=== PATIENT | male | born 1995 | race Caucasian/White ===

== ENCOUNTER → 2020-07-21 15:17 | Outpatient (BNVA) | payer MEDICARE, MEDICAID, SELFPAY | PROVIDERS: Family Provider Family Medicine; Visit Provider Nurse Practitioner | DX: S50.319A Abrasion of unspecified elbow, initial encounter (principal); L08.9 Local infection of the skin and subcutaneous tissue, unspecified; S89.90XA Unspecified injury of unspecified lower leg, initial encounter; M25.569 Pain in unspecified knee; X58.XXXA Exposure to other specified factors, initial encounter | CPT/HCPCS: 73562 ==

== ENCOUNTER 2020-09-15 21:18 | Emergency (ER) | payer MEDICARE, MEDICAID, SELFPAY ==
--- NOTE | 2020-09-15 21:41 | CTR_ITS ---
PROCEDURE INFORMATION: Exam: CT Maxillofacial Without Contrast Exam date and time: 09/15/2020 9:41 PM Age: 25 years old Clinical indication: Injury or trauma; Blunt trauma (contusions or hematomas); Orbit/periorbital; Left; Patient HX: Kicked by a horse, +loc w L periorbital bruising; Additional info: Left eye hematoma. Fell off horse TECHNIQUE: Imaging protocol: Computed tomography images of the face without contrast. Radiation optimization: All CT scans at this facility use at least one of these dose optimization techniques: automated exposure control; mA and/or kV adjustment per patient size (includes targeted exams where dose is matched to clinical indication); or iterative reconstruction. COMPARISON: No relevant prior studies available. RADIATION DOSE METRICS: Total DLP (mGy-cm): 764.56 FINDINGS: Orbital cavity: Negative for orbital injury. Bones/joints: No acute fracture. Paranasal sinuses: Normal. No air-fluid levels. Soft tissues: Mild periorbital soft tissue swelling. CT/CT facial bones wo con* [id number] IMPRESSION: Negative for facial bone fracture. Radiation Dose CTDIVOL = (mGy): DLP = 764.56 (mGy-cm)
--- NOTE | 2020-09-15 21:41 | CTR_ITS ---
PROCEDURE INFORMATION: Exam: CT Head Without Contrast Exam date and time: 09/15/2020 9:41 PM Age: 25 years old Clinical indication: Injury or trauma; Blunt trauma (contusions or hematomas); With loss of consciousness; Loss of consciousness for 30 minutes or less; Patient HX: Kicked by a horse, +loc w L periorbital bruising; Additional info: Fell off horse TECHNIQUE: Imaging protocol: Computed tomography of the head without contrast. Radiation optimization: All CT scans at this facility use at least one of these dose optimization techniques: automated exposure control; mA and/or kV adjustment per patient size (includes targeted exams where dose is matched to clinical indication); or iterative reconstruction. COMPARISON: No relevant prior studies available. RADIATION DOSE METRICS: Total DLP (mGy-cm): 849.51 FINDINGS: Brain: Normal. No hemorrhage. Unremarkable white matter. No mass effect. Cerebral ventricles: No ventriculomegaly. Paranasal sinuses: Visualized sinuses are unremarkable. No fluid levels. Mastoid air cells: Visualized mastoid air cells are well aerated. Orbital cavity: No orbital injury identified. Bones/joints: Unremarkable. No acute fracture. Soft tissues: Left periorbital soft tissue swelling. CT/CT head wo con* [id number] IMPRESSION: Negative for intracranial injury. Radiation Dose CTDIVOL = (mGy): DLP = 849.51 (mGy-cm)
--- NOTE | 2020-09-15 21:41 | CTR_ITS ---
PROCEDURE INFORMATION: Exam: CT Cervical Spine Without Contrast Exam date and time: 09/15/2020 9:41 PM Age: 25 years old Clinical indication: Injury or trauma; Blunt trauma; Patient HX: Kicked by a horse, +loc w L periorbital bruising c-collar in place; Additional info: Fell off horse, neck pain TECHNIQUE: Imaging protocol: Computed tomography images of the cervical spine without contrast. Radiation optimization: All CT scans at this facility use at least one of these dose optimization techniques: automated exposure control; mA and/or kV adjustment per patient size (includes targeted exams where dose is matched to clinical indication); or iterative reconstruction. COMPARISON: CT head wo con* [id number] 09/15/2020 9:52 PM RADIATION DOSE METRICS: Total DLP (mGy-cm): 484.71 FINDINGS: Vertebrae: No acute fracture. Normal alignment. C2-C3: No significant disc protrusion. No severe spinal canal stenosis. No significant neural foraminal narrowing. C3-C4: No significant disc protrusion. No severe spinal canal stenosis. No significant neural foraminal narrowing. C4-C5: No significant disc protrusion. No severe spinal canal stenosis. No significant neural foraminal narrowing. C5-C6: No significant disc protrusion. No severe spinal canal stenosis. No significant neural foraminal narrowing. C6-C7: No significant disc protrusion. No severe spinal canal stenosis. No significant neural foraminal narrowing. 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 C7-T1: No significant disc protrusion. No severe spinal canal stenosis. No significant neural foraminal narrowing. Soft tissues: Unremarkable. Lungs: Lung apices are normal. CT/CT cervical spin wo con* [id number] IMPRESSION: No acute findings. Radiation Dose CTDIVOL = (mGy): DLP = 484.71 (mGy-cm)
--- NOTE | 2020-09-15 21:42 | XRR_ITS ---
PROCEDURE INFORMATION: Exam: XR Chest Exam date and time: 09/15/2020 9:42 PM Age: 25 years old Clinical indication: Injury or trauma; Fall; Blunt trauma (contusions or hematomas); Additional info: Fell off horse TECHNIQUE: Imaging protocol: XR of the chest. Views: 1 view. COMPARISON: CT cervical spin wo con* [id number] 09/15/2020 9:56 PM FINDINGS: Lungs: Unremarkable. No consolidation. Pleural spaces: Unremarkable. No pleural effusion. No pneumothorax. Heart/Mediastinum: Unremarkable. No cardiomegaly. Bones/joints: Unremarkable. XR/XR chest 1V portable [id number] IMPRESSION: No acute findings.
[2020-09-15] MEDS: morphine 4 mg/mL SDV 1 mL IVP (21:51)
[2020-09-15] MEDS: ondansetron 2 mg/ML SDV 2 mL 4 MG IVP (21:52)
[2020-09-15 21:59] LABS: Basophils % 0.3 %; Eosinophils # 0.1 10^3/uL (0.0-0.8); Eosinophils % 0.8 %; Hemoglobin 16.6 g/dL (11.7-16.6); Lymphocytes % 40.1 %; Mean Corpuscular HGB Conc 33.9 g/dL (30.0-36.0); Mean Corpuscular Hemoglobin 30.4 pg (28.0-34.0); Mean Corpuscular Volume 89.7 fL (80-94); Monocytes # 0.5 10^3/uL (0.2-0.9); Monocytes % 6.8 %; Neutrophils % 51.7 %; Nucleated Red Blood Cells % 0 %; Platelet Count 284 10^3/cmm (130-400); Red Blood Count 5.46 10^6/uL (4.1-5.3); Red Cell Distribution Width 11.5 % (12.1-15.1); White Blood Count 7.4 10^3/uL (4.0-10.0)
[2020-09-15] MEDS: sodium chloride 0.9% 1,000 ML 999 ML IV (22:03)
[2020-09-15 22:04] VITALS: BP 135/84; PULSE 76; RESP 26; TEMP 36.6; O2SAT 99; BMI 21.7
[2020-09-15 22:09] LABS: Alanine Aminotransferase 22 U/L (0-41); Albumin Level 5.2 g/dL (3.5-5.2); Alkaline Phosphatase 87 IU/L (40-130); Anion Gap 23.8 (5-19); Aspartate Amino Transferase 24 U/L (0-40); Blood Urea Nitrogen 16 mg/dL (6-20); Calcium 9.5 mg/dL (8.5-10.5); Carbon Dioxide 20 mmol/L (22-29); Chloride 97 mmol/L (98-107); Glomerular Filtration Rate 102.8 mL/min (90-130); Glucose 127 mg/dL (65-115); Osmolality Calculated 287 mOsm/kg (285-295); Potassium 3.8 mmol/L (3.5-5.1); Sodium 137 mmol/L (136-145); Total Bilirubin 0.6 mg/dL (0.15-1.2); Total Protein 7.2 g/dL (6.6-8.7)
--- NOTE | 2020-09-15 22:09 | ED_ITS ---
HPI - Head Injury General: Chief complaint: Head Injury Stated complaint: KCIKED IN THE HEAD BY A HORSE Time Seen by Provider: 09/15/20 21:31 History of Present Illness: HPI Narrative: The patient is a 25-year-old male who comes to the ER after a head injury. Report is that he fell off of a horse hitting his head at the [place]. He does not remember the event and there is secondhand information through bystanders that say he was possibly knocked out for up to 2 minutes. He was definitely confused after not knowing who he was. EMS reported that he was conscious and answering some questions inappropriately like what year is it he responded 2020. They reported that that is normal for him however I talked to him and his girlfriend and they say it is abnormal for him. He is not sure of the year, the president. He knows his full name and address. He does not recall the month. He complains of a frontal headache and has slight bruising under his left eyebrow. Denies any medical problems until today. MD Complaint: head injury Arrival Conditions: C-spine immobilization present Mechanism of Injury: unsure Loss of Consciousness: yes Severity: severe Severity scale (1-10): 10 Quality: sharp Associated symptoms: Reports amnesia, confusion and nausea; Deny neck pain, numbness, tingling, vertigo, visual changes, vomiting or weakness Review of Systems General: Reports: 10 or more systems reviewed and unremarkable except in HPI and below Const: Denies: fatigue Eyes: Denies: change in vision, blurry vision or eye redness ENMT: Denies: throat pain, swelling of lips/tongue, ear or mastoid pain or nasal congestion Card: Denies: chest pain, palpitations, irregular heart rhythm, edema, dyspnea on exertion or orthopnea Resp: Denies: dyspnea, productive cough or non-productive cough GI: Reports: nausea; Denies: vomiting : Denies: flank pain, urinary frequency or urinary urgency Musc: Denies: neck pain Skin/Breast: Denies: rash, pruritus, erythema, skin pain or skin tenderness Neuro: Reports: headache(s) and confusion; Denies: vertigo Endo: Denies: polyuria All/Imm: Denies: urticaria, throat swelling or tongue swelling PFSH ED PFSH: Social History Smoking and tobacco status: never smoked Physical Exam Const: COMMON NORMALS: alert GENERAL APPEARANCE: cooperative, in distress and anxious; not lethargic ORIENTATION/CONSCIOUSNESS: Yes awake, Yes oriented to person and Yes confused; not oriented to place, not oriented to time and not lethargic OTHER: He is unsure who the president is, what month it is, what day it is, and where he is. He knows his name and home address but cannot recall his phone number. Also not sure who the president is. He has bruising below his left eyebrow from the injury. HENMT: COMMON NORMALS: normocephalic, external ears normal and Normal external nose present HEAD & SCALP: normal to inspection and normocephalic FACE & SINUS IMAGES: 1. Small amount of ecchymosis. Associated tenderness NOSE: Normal external nose present EXTERNAL EAR: Yes external ears normal MOUTH: Normal oral and palatal mucosa present THROAT: posterior oropharynx normal Eye: COMMON NORMALS: Equal, round and reactive pupils present and EOMs intact bilaterally GENERAL EYE: appearance normal, both eyes and all related structures PUPIL: Yes Equal, round and reactive pupils present Neck/C-Spine: COMMON NORMALS: full ROM, no lymphadenopathy, no meningeal signs and no JVD GENERAL: Yes normal visual inspection Lymph: LYMPHATIC: no lymphadenopathy noted Chest: COMMONS NORMALS: normal inspection of the chest and normal palpation of entire chest wall Resp: COMMON NORMALS: normal respiratory effort, No retractions, No use of accessory muscles, clear to auscultation bilaterally and percussion normal EFFORT & INSPECTION: Yes able to speak in complete sentences AUSCULTATION: clear to auscultation bilaterally PERCUSSION: percussion normal Cardio: COMMON NORMALS: no JVD, regular rate, regular rhythm, S1 normal heart sound present, S2 normal heart sound present and Peripheral pulses 2+ throughout RATE: regular rate RHYTHM: regular rhythm HEART SOUNDS: S1 normal heart sound present and S2 normal heart sound present PERIPHERAL PULSES: Peripheral pulses 2+ throughout GI: COMMON NORMALS: Normal to inspection, nondistended, normoactive bowel sounds present, Soft to palpation, non-tender and no masses INSPECTION: Yes normal to inspection PALPATION: Yes Soft to palpation : COMMON NORMALS: Yes no CVA tenderness BLADDER/KIDNEY EXAM: Yes no CVA tenderness Back/Pelvis: COMMON NORMALS: no CVA tenderness, thoracic and lumbar spine normal to inspection, no thoracic nor lumbar tenderness and thoraco-lumbar ROM normal Extremity: COMMON NORMALS: normal to inspection, full ROM, capillary refill normal, no joint enlargement and no pedal edema GENERAL: Yes normal exam except as noted Neuro: TAWNY COMA SCALE: document GCS findings Auberry coma scale eye opening: Spontaneous Auberry coma scale verbal response: Orientated Tawny coma scale motor response: Obey commands Auberry coma scale total score: 15 SENSORIUM/ORIENTATION: Yes alert, Yes oriented to person, No oriented to place, No oriented to time, No lethargic and No somnolent MENINGEAL SIGNS: Yes no meningeal signs and No nuccal rigidity CRANIAL NERVES: Yes CN normal except as noted COORDINATION/BALANCE: [id number] test normal SPEECH: speech normal GAIT: Yes Unable to assess gait MOTOR EXAM: 5/5 motor strength present throughout COORDINATION: [id number] test normal Psych: COMMON NORMALS: speech normal APPEARANCE: Yes grossly normal ACTIVITY/MOTOR BEHAVIOR: Yes appropriate eye contact, Yes fidgeting and Yes restless SPEECH: Yes normal speech MOOD & AFFECT: Yes anxious THOUGHT PROCESS: confused Skin: COMMON NORMALS: no rashes or lesions noted GENERAL SKIN EXAM: no rashes or lesions noted Course Vital Signs: Vital signs: Vital Signs Temperature 97.8 F 09/15/20 22:04 Pulse Rate 51 L 09/16/20 00:04 Respiratory Rate 17 09/16/20 00:04 Blood Pressure 133/61 09/16/20 00:04 Pulse Oximetry 96 09/16/20 00:04 MDM - Head Injury MDM Narrative: Medical decision making narrative: The patient comes in with symptoms of a moderate concussion. He had difficulty remembering the details of his injury, confusion, did not know the year or president or month. He complained of severe frontal headache. He had small periorbital bruising underneath his left eyebrow. CT head face and neck were negative. Chest x-ray also negative. He was given IV fluids and monitored. His thought process became more clear and he knew the answer to all the above questions now. He also remembers the details of the injury is called a game called football where you grab a football and jump on a horse. I watched a video that was sent to his family member where he was jumping off a horse and it threw him on the ground. He likely has a concussion. I recommended he avoid stimulation for around 5 days and avoid activities likely to injure as well as get good amounts of rest. Tylenol for pain. I placed a case management consult to help him get in PCP appointment next week to set up care and possibly get MRI at that time of his brain. ER with worsening symptoms at any time. I also notified him his heart rate has been in the mid 40s. He says he is quite athletic and can run a henny hon and bikes 20 or more miles regularly. This could be his normal heart rate versus a depressed heart rate due to a head injury. EKG shows sinus bradycardia with a rate of 48. Will return to ER if he has chest pain, shortness of breath, weakness, dizziness, lightheadedness or any other symptoms of symptomatic bradycardia. Lab Data: Labs: Lab Results 09/15/20 09/15/20 09/15/20 Range/Units 20:50 20:50 20:50 WBC 7.4 (4.0-10.0) 10^3/ uL RBC 5.46 H (4.1-5.3) 10^6/u L Hgb 16.6 (11.7-16.6) g/dL Hct 49.0 (42.0-52.0) % MCV 89.7 (80-94) fL MCH 30.4 (28.0-34.0) pg MCHC 33.9 (30.0-36.0) g/dL RDW 11.5 L (12.1-15.1) % Plt Count 284 (130-400) 10^3/c mm MPV 10.0 (7.4-10.4) fL Neut % (Auto) 51.7 % Lymph % (Auto) 40.1 % Stanton % (Auto) 6.8 % Eos % (Auto) 0.8 % Baso % (Auto) 0.3 % Neut # (Auto) 3.80 (1.8-7.7) 10^3/u L Lymph # (Auto) 3.0 (0.8-4.8) 10^3/u L Stanton # (Auto) 0.5 (0.2-0.9) 10^3/u L Eos # (Auto) 0.1 (0.0-0.8) 10^3/u L Baso # (Auto) 0.0 (0.0-0.1) 10^3/u L Nucleated RBC % (a uto) 0 % Nucleated RBCs # 0.0 /100WBC Sodium 137 (136-145) mmol/L Potassium 3.8 (3.5-5.1) mmol/L Chloride 97 L (98-107) mmol/L Carbon Dioxide 20 L (22-29) mmol/L Anion Gap 23.8 H (5-19) BUN 16 (6-20) mg/dL Creatinine 0.9 (0.7-1.2) mg/dL GFR Calculation 102.8 (90-130) mL/min Glucose 127 H (65-115) mg/dL Calculated Osmolal ity 287 (285-295) mOsm/k g Calcium 9.5 (8.5-10.5) mg/dL Total Bilirubin 0.6 (0.15-1.2) mg/dL AST 24 (0-40) U/L ALT 22 (0-41) U/L Alkaline Phosphata se 87 (40-130) IU/L Creatine Kinase 175 (39-308) U/L Total Protein 7.2 (6.6-8.7) g/dL Albumin 5.2 (3.5-5.2) g/dL Globulin 2.0 (1.3-4.6) g/dL Discharge Plan Discharge Patient Disposition: Home Clinical Impression: Concussion with loss of consciousness Condition: Stable Prescriptions: No Action cephalexin 500 mg capsule 500 mg PO TID 7 Days Qty: 21 RF: 0 Discharge Orders: Discharge ED (Routine); Ordered 09/15/20 Ordered By: Marcos Ayon Discharge Diet: Advance as tolerated Discharge Activity: Resume usual activity Patient Instructions: Concussion (ED), Post Concussion Syndrome (ED), Opioid Safety Activity Restrictions/Additional Instructions: You have had a head injury and are likely suffering from a concussion. Her symptoms are already improving in the ED which is encouraging. Please take Tylenol for pain and reduce the amount of stimuli you are exposed to. Dark rooms, no TV, no computer, minimal phone use. Get lots of sleep. And avoid activity likely to injure yourself further. I have placed a case management referral and they should be calling you Thursday or Thursday to help get an appointment with a primary care physician. Please get an MRI of your brain at that time and return to the ER at anytime with worsening symptoms. Also of note you have had a slightly low heart rate here in the mid 40s at times. This could be normal for you but should be monitored again at the primary care appointment. Return to the ER at anytime with worsening symptoms, chest pain, shortness of breath, worsening headache, dizziness, or any other worrisome symptoms. Coding Level of Care Code ED Crew Attendant for Liya Smith Exam Comprehensive
--- NOTE | 2020-09-15 22:41 | ECG_ITS ---
[facility] Test Date: 2020-09-15 Pat Name: Babak Alvarado Jr Department: Room: Gender: Male Public Speaking Instructor: : 1995 Requested By: Marcos Ayon Order Number: [id number] Tayo MD: Abiel Eastman M.D. Measurements Intervals [place] Rate: 48 P: 57 [place]: 156 QRS: 86 QRSD: 102 T: 42 QT: 461 QTc: 414 Interpretive Statements SINUS BRADYCARDIA NONSPECIFIC T-WAVE ABNORMALITY No previous ECG available for comparison Electronically Signed On 09-16-2020 20:04:09 CDT by Abiel Eastman M.D. https://[email or web address].[email or web address] Clark Communicationsmonroe regional hospitalIncoming Mediabrecksville va / [facility].[employer]/store/NU/[id number]/[id number] f
[2020-09-15 23:00] LABS: Creatine Phosphokinase 175 U/L (39-308)
[2020-09-16 00:04] VITALS: BP 133/61; PULSE 51; RESP 17; O2SAT 96
--- NOTE | 2020-09-18 11:43 | DCPLANNER ---
plan manager had message to speak with patient about getting established with a primary care physician. plan manager called phone number [phone] unable to speak with patient or leave a voicemail due to no voicemail box set up. plan manager called phone number [phone], Leonora family friend, left a message for patient to return complex case manager phone call.
== END 2020-09-16 00:21 | disposition home or self-care (01) ==
PROVIDERS: Emergency Provider Family Medicine
DX: S06.0X9A Concussion with loss of consciousness of unspecified duration, initial encounter (principal); V80.010A Animal-rider injured by fall from or being thrown from horse in noncollision accident, initial encounter; Y92.39 Other specified sports and athletic area as the place of occurrence of the external cause
CPT/HCPCS: 70450; 70486; 71045; 72125; 80053; 82550; 85025; 93005; 96361; 96374; 96375; 99283; J2270; J2405; J7030

== ENCOUNTER 2021-01-22 10:52 | Outpatient (CLI) | payer MEDICARE, MEDICAID, SELFPAY ==
--- NOTE | 2021-01-22 11:13 | XR_ITS ---
WS: [id number] FEMUR LEFT TECHNIQUE: 2 views of the left femur CLINICAL INFORMATION: L distal Femur nodule COMPARISON: 2013 FINDINGS: Again seen is the osteochondroma involving the distal anterior lateral femur. Slightly more prominent ossification or cartilage cap involving the distal aspect. Otherwise this is unchanged in appearance compared to previous. No significant bony irregularity or cortical destructio n. Proximal femurs are normal in appearance. XR/XR femur LT min 2V* [id number] IMPRESSION: 1. Again seen is the osteochondroma involving the distal anterior lateral femu r. 2. Slightly more prominent ossification or cartilage cap involving the distal aspect 3. No bony or cortical destruction. 4. If clinical pain in this area recommend further evaluation with MRI without and with gadolinium.
== END 2021-01-22 10:53 | disposition home or self-care (01) ==
PROVIDERS: PCP Family Medicine; Visit Provider Family Medicine
DX: M89.352 Hypertrophy of bone, left femur (principal); D16.22 Benign neoplasm of long bones of left lower limb
CPT/HCPCS: 73552

== ENCOUNTER 2022-06-13 14:36 | Emergency (ER) | payer MEDICARE, MEDICAID, SELFPAY ==
[2022-06-13 14:45] VITALS: BP 150/104; PULSE 77; RESP 16; TEMP 36.7; O2SAT 97; BMI 27.2
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
[2022-06-13 15:27] VITALS: BP 146/78; PULSE 71; RESP 14; O2SAT 99
== END 2022-06-13 15:27 | disposition home or self-care (01) ==
PROVIDERS: Emergency Provider Emergency Medicine; PCP Family Medicine
DX: M25.561 Pain in right knee (principal)
CPT/HCPCS: 99283